=== PATIENT | female | born 1940 | race Caucasian/White ===

== ENCOUNTER 2023-03-30 14:52 | Emergency (ER) | payer MEDICARE, BC, SELFPAY ==
[2023-03-30 14:54] VITALS: BP 108/55; PULSE 74; RESP 16; TEMP 36.6; O2SAT 96; BMI 22.4
--- NOTE | 2023-03-30 16:40 | EX.ED.DYSGE1 ---
HPI History of Present Illness Chief Complaint: Weakness Informant: patient and other Narrative Narrative: Patient presents secondary to weakness. Patient has a history dementia and is in hospice care. She was on an outing today with her aide. 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 They stopped to get some ice cream and while walking into the store she became weak and her legs buckled. She was lowered to the ground. She did not strike her head or lose consciousness. She states now that she is in air conditioning she feels fine and has no complaints [facility] Medical History (Updated 03/30/23 @ 16:[address] Cassidy Batista MD) Dementia Social History Smoking Status: Never smoker ROS ROS ED Constitutional Constitutional ED: Denies fever(s) Eyes Eyes: Denies change in vision ENT ENT ED: Denies rhinorrhea Cardiovascular Cardiovascular: Denies chest pain or palpitations Respiratory/Chest Respiratory/Chest: Denies cough Gastrointestinal Gastrointestinal: Denies abdominal pain Musculoskeletal Musculoskeletal: Denies back pain or neck pain Neurologic Neurologic: Reports weakness Allergic/Immunologic Allergic/Immunologic ED: Denies mouth swelling or tongue swelling EXAM Physical Exam Const Vital Signs: 03/30/23 14:54 Temperature 97.8 F Temperature Source Oral Pulse Rate 74 Respiratory Rate 16 Blood Pressure 108/55 L Blood Pressure Mean 72 Pulse Ox 96 Oxygen Delivery Method Room Air Positive well nourished and well developed General Appearance ED: well developed HEENT Reports moist mucous membranes Eyes EOMs intact bilaterally Chest Wall inspection of chest normal and palpation of chest normal Resp normal respiratory effort and clear to auscultation bilaterally Cardio regular rate and regular rhythm GI non-tender Palpation: soft Extremity normal to inspection Neuro Neuro Narrative: Patient is alert and appropriate. She answers questions appropriately. She has no complaints at this time. Skin no rashes or lesions noted MDM MDM MDM Narrative Medical decision making narrative: Patient is placed on channel account manager and IV fluids initiated by EMS are continued. Given the patient is currently hospice care attempts were made to contact them as far as what work-up would be allowed. With patient not having any significant complaints at this time and did not feel that this was an urgent need to start blood work and further treatment. I spoke with the patient's son by phone as well as the hospice nurse. At this time she has no complaints and family would prefer to not pursue any further work-up. Hospice nurse will go to her home tonight to check her. At this time she can be safely discharged with her aide. Discharge Plan Triage Chief Complaint: Weakness ED Provider: Cassidy Batista Dx/Rx/DC Orders Clinical Impression: Weakness Instructions: ED Weakness (Uncertain Cause) Primary Care Provider: Care Physician,No Primary Referrals: Care Physician,No Primary [Primary Care Provider] - Disposition Disposition: Home, Self Care
[2023-03-30 17:07] VITALS: BP 125/67; PULSE 85; RESP 16; O2SAT 98
== END 2023-03-30 17:09 | disposition home or self-care (01) ==
PROVIDERS: Emergency Provider Emergency Medicine; Visit Provider Emergency Medicine
DX: R53.1 Weakness (principal); F03.90 Unspecified dementia, unspecified severity, without behavioral disturbance, psychotic disturbance, mood disturbance, and anxiety
CPT/HCPCS: 99284